=== PATIENT | female | born 1995 | race Caucasian/White ===

== ENCOUNTER 2021-03-09 11:23 | Emergency (ER) | payer BC ==
[2021-03-09 11:40] VITALS: BP 117/70; PULSE 106; TEMP 98.1; BMI 32.9
[2021-03-09] MEDS ORDERED: KETOROLAC TROMETHAMINE 30 MG/1 ML VIAL IM ONE (11:53)
[2021-03-09] MEDS ORDERED: KETOROLAC TROMETHAMINE 30 MG/1 ML VIAL ONE (11:54)
== END 2021-03-09 12:13 | disposition home or self-care (01) ==
LOC: JER 11:23 → JERFT 11:23
PROC: 3E0233Z Introduction of Anti-inflammatory into Muscle, Percutaneous Approach (ICD-10-PCS; principal; 2021-03-09)
DX: M54.5 Low back pain (principal)
CPT/HCPCS: 99284-25

== ENCOUNTER 2021-12-28 06:33 | Emergency (ER) | payer BC ==
[2021-12-28 06:50] VITALS: TEMP 99.7; BMI 34.7
[2021-12-28] MEDS ORDERED: SODIUM CHLORIDE 1,000 ML IV STA (07:52)
[2021-12-28] MEDS ORDERED: ACETAMINOPHEN 1000 MG/100 ML BAG IVPB ONE (07:56)
[2021-12-28] MEDS ORDERED: ACETAMINOPHEN INJECTION 100 ML IVPB ONE (08:33)
[2021-12-28 08:40] LABS: BASO % 0.8 % (0-2.0); EOS % 4.1 % (0-4.5); HEMATOCRIT 40.8 % (32.4-45.2); HEMOGLOBIN 13.5 GM/dL (10.7-15.3); LYMPH % 10.4 % (8-40); MCH 29.2 pg (25.7-33.7); MCHC 33.2 g/dl (32.0-36.0); MEAN PLT VOLUME 8.8 fl (7.5-11.1); MONO % 13.8 % (3.8-10.2); NEUT % 70.9 % (42.8-82.8); PLATELET COUNT 270 10^3/uL (134-434); RBC 4.64 M/mm3 (3.60-5.2); RDW 13.2 % (11.6-15.6); WHITE BLOOD COUNT 4.9 K/mm3 (4.0-10.0)
[2021-12-28 08:41] LABS: URINE APPEARANCE CLEAR; URINE BILIRUBIN NEGATIVE (NEGATIVE); URINE COLOR YELLOW; URINE GLUCOSE (UA) NEGATIVE (NEGATIVE); URINE KETONE NEGATIVE (NEGATIVE); URINE LEUK ESTERASE NEGATIVE (NEGATIVE); URINE NITRITE NEGATIVE (NEGATIVE); URINE PROTEIN NEGATIVE (NEGATIVE); URINE UROBILINOGEN 0.2 mg/dL (0.2-1.0)
[2021-12-28] MEDS ORDERED: ONDANSETRON 4 MG/2 ML VIAL IVPUSH ONE (08:41)
[2021-12-28 08:43] LABS: HCG,QUALITATIVE URINE Negative
[2021-12-28] MEDS ORDERED: ONDANSETRON 4 MG/2 ML VIAL ONE (08:43)
[2021-12-28 09:07] LABS: CALCIUM 9.7 mg/dL (8.5-10.1)
[2021-12-28 09:08] LABS: ALBUMIN 3.7 g/dl (3.4-5.0); BLOOD UREA NITROGEN 8.7 mg/dL (7-18)
[2021-12-28 09:11] LABS: CREATININE 0.9 mg/dL (0.55-1.3)
[2021-12-28 09:12] LABS: BILIRUBIN,TOTAL 0.4 mg/dL (0.2-1); TOT PROT 7.5 g/dl (6.4-8.2)
[2021-12-28 10:12] VITALS: BP 101/55; PULSE 97
[2021-12-29 07:07] LABS: SARS-CoV-2 NAA Detected (Not Detected)
== END 2021-12-28 10:44 | disposition home or self-care (01) ==
LOC: JER 06:33
PROC: 3E033GC Introduction of Other Therapeutic Substance into Peripheral Vein, Percutaneous Approach (ICD-10-PCS; principal; 2021-12-28)
DX: B34.9 Viral infection, unspecified (principal)
CPT/HCPCS: 36415; 71046-TC-FY; 80053; 81003; 84703; 85025; 87086; 87651; 87804; 99284-25; C9803-CS; U0003; U0005

== ENCOUNTER 2023-11-10 22:38 | Emergency (ER) | payer BC, OTHER ==
[2023-11-10 22:55] VITALS: BP 114/76; PULSE 66; RESP 18; TEMP 98.3; BMI 34.4
[2023-11-10] MEDS ORDERED: DIPHTH,PERTUSS(ACELL),TET 0.5 ML DISP.SYRIN IM ONE ×2 (23:54→23:56)
[2023-11-11] MEDS ORDERED: CLINDAMYCIN HCL 300 MG CAPSULE PO ONE (00:51)
== END 2023-11-11 01:12 | disposition home or self-care (01) ==
LOC: JER 22:38
PROC: 0HQFXZZ Repair Right Hand Skin, External Approach (ICD-10-PCS; principal; 2023-11-10)
PROC: 3E0234Z Introduction of Serum, Toxoid and Vaccine into Muscle, Percutaneous Approach (ICD-10-PCS; 2023-11-10)
DX: S61.210A Laceration without foreign body of right index finger without damage to nail, initial encounter (principal); W23.1XXA Caught, crushed, jammed, or pinched between stationary objects, initial encounter
CPT/HCPCS: 90715; 99283-25